=== PATIENT | female | born 1960 | race Caucasian/White ===

== ENCOUNTER 2016-06-13 18:45 | Emergency (ER) | payer OTHER ==
[~2016-06-13] VITALS: Ht 157.5 cm; Wt 70.0 kg
[~2016-06-13 18:45] MED LIST: CYCL-319 PO; HYDR-3498 PO
[2016-06-13 18:48] VITALS: Ht 157.5 cm; Wt 70.0 kg
[2016-06-13] MEDS ORDERED: KETOROLAC 30 MG INJ IM STA (21:44)
--- NOTE | 2016-06-13 23:00 | RADRPT ---
PROCEDURE: XR Cervical Spine. CLINICAL INDICATION: Generalize neck pain TECHNIQUE: Erect AP, lateral, and odontoid views of the cervical spine were obtained. COMPARISON: None available FINDINGS: Mineralization is within normal limits. No fracture or osseous lesion is identified. Vertebral bod ies are normal in height. Cervical lordosis is straightened. No vertebral subluxation is seen. In tervertebral discs are normal in height with anterior spondylosis at C4-5, C5-6 and C6-7. Facet naz nts appear mildly degenerated right side greater than left at the C4-5 and C5-6. Prevertebral soft tissues, predental space and atlantoaxial joint are unremarkable. RPTAT:HJJR IMPRESSION: 1. Anterior spondylosis at C4-5, C5-6 and C6-7 without significant disk space narrowing. 2. Lordotic straightening may be positioning but cannot exclude muscle spasm. 3. Right greater than left facet arthropathy at C4-5 and C5-6. Physician Horacio Date Time Electronically viewed and signed by Physician Horacio on 06/13/2016 23:00 /
[2016-06-13] MEDS ORDERED: GABA300C PO (23:11)
[2016-06-13] MEDS ORDERED: HYDR-906 PO (23:11)
[2016-06-13 23:53] VITALS: BP 130/74; PULSE 66; RESP 18; TEMP 98
--- NOTE | 2016-06-14 00:42 | ERD ---
ER Documentation Chief Complaint Date/Time DATE: 06/14/16 TIME: 00:39 Chief Complaint neck pain margarita, denies injury HPI Patient is a 56-year-old female brought in by her son complaining of neck pain that extends to the right shoulder and arms. Patient denies any trauma. Patient went to [facility] urgent care this morning and was diagnosed with muscle strain and was prescribed with Flexeril and ibuprofen. Patient symptoms have not improved and went back to [facility] ED. patient denies any fevers, trauma, nausea, vomiting, sore throat, chest pain shortness of breath. patient has history of fibromyalgia and hypothyroidism. Denies any travel outside the [place]. ROS All systems reviewed and are negative except as per history of present illness. Medications Home Meds Active Scripts Gabapentin* (Neurontin*) 300 Mg Capsule, 300 MG PO TID, #90 CAP Prov:ANDREA CROSS 06/13/16 Hydrocodone/Acetaminophen ([place] 5-325 Tablet) 1 Each Tablet, 1 TAB PO Q6H Y for PAIN, #10 TAB Prov:ANDREA CROSS 06/13/16 Hydrocodone Bit-Acetaminophen* ([place]*) 5-325 Mg Tab, 1 TAB PO Q6 Y for PAIN, # 7 TAB Prov:ROSATACHO ROCHA I. STUDENT MINISTRIES DIRECTOR 04/09/15 Cyclobenzaprine Hcl* (Cyclobenzaprine Hcl*) 10 Mg Tablet, 10 MG PO TID, #15 TAB Prov:ROSATACHO FOX I. STUDENT MINISTRIES DIRECTOR 04/09/15 Allergies Allergies: Coded Allergies: No Known Allergy (Unverified , 06/13/16) PMhx/Soc History of Surgery: Yes (1991 - ) Anesthesia Reaction: No Hx Neurological Disorder: No Hx Respiratory Disorders: No Hx Cardiac Disorders: No Hx Psychiatric Problems: No Hx Miscellaneous Medical Probl: Yes (HYPOTHYROID, FIBROMYALGIA) Hx Alcohol Use: No Hx Substance Use: No Hx Tobacco Use: No Smoking Status: Never smoker Physical Exam Vitals Vital Signs Date Time Temp Pulse Resp B/P Pulse Ox O2 Delivery O2 Flow Rate FiO2 06/13/16 23:53 98.0 66 18 130/74 98 Room Air 06/13/16 18:48 98.3 84 20 136/73 99 Physical Exam Physical Exam CONST: Well-developed, well-nourished, in no acute distress. Nontoxic in appearance. HEENT: Atraumatic. Normal conjunctiva. EOM intact. TM intact. External ear is normal. Clear oropharnyx without erythema. No uvular deviation. Moist mucous membranes. Supple neck. No meningismus. No submandibular induration. RESP: Clear to auscultation bilaterally. No wheezing. CARDIO: Regular rate and rhythm, no murmurs. ABD: Soft, non tender, non distended. Normal bowel sounds. No McBurney's point tenderness. No guarding or rigidity. No peritoneal signs. SKIN: No petechiae or rashes. BACK: No midline or flank tenderness. EXT: Decreased range of motion on the neck due to pain. Motor strength + 5 in all extremities. No cyanosis or edema. Distal pulses equal and bilateral. NEURO: Awake and alert, appropriate for age. Results 24 hrs Current Medications Medications (Trade) Dose Ordered Sig/Bijal Route PRN Reason Start Time Stop Time Status Last Admin Dose Admin Ketorolac Tromethamine (Toradol) 30 mg ONCE STAT IM 06/13/16 21:44 06/13/16 21:46 DC 06/13/16 22:01 PROCEDURE: XR Cervical Spine. CLINICAL INDICATION: Generalize neck pain TECHNIQUE: Erect AP, lateral, and odontoid views of the cervical spine were obtained. COMPARISON: None available FINDINGS: Mineralization is within normal limits. No fracture or osseous lesion is identified. Vertebral bodies are normal in height. Cervical lordosis is straightened. No vertebral subluxation is seen. Intervertebral discs are normal in height with anterior spondylosis at C4-5, C5-6 and C6-7. Facet joints appear mildly degenerated right side greater than left at the C4-5 and C5 -6. Prevertebral soft tissues, predental space and atlantoaxial joint are unremarkable. RPTAT:HJJR IMPRESSION: 1. Anterior spondylosis at C4-5, C5-6 and C6-7 without significant disk space narrowing. 2. Lordotic straightening may be positioning but cannot exclude muscle spasm. 3. Right greater than left facet arthropathy at C4-5 and C5-6. Edilson Mar Physician Date Time Electronically viewed and signed by Physician Horacio on 06/13/2016 23:00 Procedures/MDM My adult on the EMERGENCY DEPARTMENT COURSE/MEDICAL DECISION MAKING This is a 56-year-old female who comes to the emergency department complaining of neck pain that extends to the shoulders and arm. Patient went to [facility] this morning and was diagnosed with muscle strain. Patient has a history of fibromyalgia. The patient was given Toradol IM in the department. On re-evaluation, the patient's symptoms improved. X-ray of the C-spine was done and was interpreted by a radiologist. Results shows anterior spondylosis at C4-5, C5-6 and C6-7 without significant disk space narrowing.. My primary diagnosis is neck pain. Secondary diagnosis spondylosis of the cervical Differential diagnoses considered but not limited to fracture, meningitis, ME, muscle strain. Pt is hemodynamically stable upon reassessment. The patient was discharged for outpatient management with a prescription for Neurontin and [place]. Patient was instructed to stop taking the Flexeril. The patient was advised to followup with an e business specialist and their PMD in 1 -2 days. Patient was also advised to see a physical therapist. Return to the Emergency Department if there are any new or worsening symptoms. The patient understood and agreed with the diagnosis, treatment and plan. Patient is stable for discharge at this time. Departure Diagnosis: Primary Impression: Neck pain Additional Impression: Spondylosis of cervical joint Spinal osteoarthritis complication: unspecified spinal osteoarthritis Qualified Code: M47.812 - Osteoarthritis of cervical spine, unspecified spinal osteoarthritis complication status Condition: Stable Patient Instructions: Neck Pain, No Trauma Referrals: [facility] Urgent Care 7 a.m.- 11 p.m. Every Day of the Week NO APPOINTMENT OR AUTHORIZATION NEEDED Additional Instructions: Stop taking Flexeril. Follow-up with your primary care physician in 1-2 days and request for a Physical Therapy evaluation. Return to the emergency department immediately should you have any new or worsening symptoms, uncontrolled fevers, or other unexplained symptoms. Take all medications as directed. ANDREA CROSS Jun 14, 2016 00:41
== END 2016-06-14 00:01 | disposition home or self-care (01) ==
LOC: FTE 18:45
DX: M54.2 Cervicalgia (principal); M47.812 Spondylosis without myelopathy or radiculopathy, cervical region; E03.9 Hypothyroidism, unspecified
CPT/HCPCS: 72040; 96372; J1885; Z7502